=== PATIENT | male | born 1960 | race Caucasian/White ===

== ENCOUNTER 2017-01-13 16:04 | Emergency (ER) | payer BC, OTHER ==
[~2017-01-13] VITALS: Ht 182.9 cm; Wt 67.1 kg
[~2017-01-13 16:04] MED LIST: ALPR.25T; DICY20TA57 PO
[2017-01-13] MEDS ORDERED: DICL50TA6 PO (18:57)
[2017-01-13] MEDS ORDERED: AMOX875T2 PO (18:57)
--- NOTE | 2017-01-13 18:57 | ED EENT ---
History of Present Illness General Chief Complaint: Dental Problems/Pain Stated Complaint: R SIDE MOUTH ABSCESS Nursing Triage Note: Pt. advises he is experiencing right sided dental pain that has been present for several weeks. Source: patient, RN notes reviewed Exam Limitations: no limitations History of Present Illness Time seen by provider: 18:49 Initial Comments Patient presents c/ c/o right sided dental pain for the last couple weeks secondary to a cavity that has been present for quite some time Has been taking some Amoxil that his had left over but doesn't have enough to make thru the weekend until he can get into his dentist. Currently rating his pain a 7/10. Timing/Duration: other (2-3 weeks) Severity: moderate (710) Location: mouth Prearrival Treatment: prescription meds (Amoxil) Modifying Factors: Improves With Other (breathing, eating, and drinking makes pain worse) Associated Symptoms: tooth pain Allergies and Home Medications Allergies Coded Allergies: No Known Drug Allergies (Unverified , 01/13/17) Home Medications Alprazolam 0.25 Mg Tablet, (Reported) Amoxicillin 875 Mg Tablet, 875 MG PO BID, #20 Ref 0 Prescribed by: CORNELIO ZAVALA on 01/13/171856 Diclofenac Sodium 50 Mg Tablet.dr, 50 MG PO Q6H PRN for DENTAL PAIN/SWELLING, # 30 Ref 0 Prescribed by: CORNELIO ZAVALA on 01/13/171856 Dicyclomine Hcl 20 Mg Tablet, 1 EACH PO QID PRN, #20 Ref 0 Prescribed by: ROSY VÁSQUEZ on 01/25/11 1904 Review of Systems Constitutional: see HPI Mouth: see HPI, pain All Other Systems Reviewed Negative Unless Noted: Yes Past Azaabsb-Ziiucv-Ijxtsf Hx Patient Social History Alcohol Use: Denies Use Recreational Drug Use: No Smoking Status: Current Everyday Smoker Type Used: Cigars 2nd Hand Smoke Exposure: No Recent Foreign Travel: No Contact w/Someone Who Travel: No Recent Infectious Disease Expo: No Recent Hopitalizations: No Seasonal Allergies Seasonal Allergies: No Surgeries Surgeries: Orthopedic Cardiovascular Cardiac Disorders: Valvular Heart Disease Physical Exam Vital Signs Vital Sign - Last 12Hours 01/13/17 17:31 Temp 98.7 Pulse 72 Resp 14 B/P (MAP) 124/77 Pulse Ox 98 O2 Delivery Room Air General Appearance: WD/WN, no apparent distress Mouth/Throat: dental tenderness (involved tooth is probably 80% gone @ this point secondary to marked decay.) Neck: supple Cardiovascular: regular rate, rhythm Respiratory: no respiratory distress Neurologic/Psychiatric: no motor/sensory deficits, alert, oriented x 3 Skin: warm/dry Progress/Results/Core Measures Results/Orders Vital Signs/I&O Blood Pressure Mean: 93 Departure Impression Impression: Primary Impression: Dental caries Additional Impression: Pain, dental Disposition: 01 HOME, SELF-CARE Condition: Stable Departure-Patient Inst. Decision time for Depature: 18:55 Referrals: KUSH VÁSQUEZ MD (PCP/Family) Primary Care Physician Patient Instructions: Dental Pain (DC), Tooth Decay, Adult (DC) Add. Discharge Instructions: All discharge instructions reviewed with patient and/or family. Voiced understanding. NEED TO SEE YOUR DENTIST CAMERON FOR DEFINITIVE EVALUATION AND TREATMENT OF YOUR DENTAL CONDITION. Scripts Diclofenac Sodium (Diclofenac Sodium) 50 Mg Tablet.dr 50 MG PO Q6H Y for DENTAL PAIN/SWELLING, #30 TAB 0 Refills Prov: CORNELIO ZAVALA DO 01/13/17 Amoxicillin (Amoxicillin) 875 Mg Tablet 875 MG PO BID for DENTAL INFECTION, #20 TAB 0 Refills Prov: CORNELIO ZAVALA DO 01/13/17 CORNELIO ZAVALA DO Jan 13, 2017 18:57
[2017-01-13 18:59] VITALS: BP 124/77
== END 2017-01-13 19:03 | disposition home or self-care (01) ==
LOC: EDUNIT# 16:04 → ER 16:06
DX: K02.9 Dental caries, unspecified (principal); F17.210 Nicotine dependence, cigarettes, uncomplicated
CPT/HCPCS: 99282

== ENCOUNTER → 2017-02-14 | Outpatient (CLI) | payer BC ==
[~2017-02-14] MED LIST changes: +AMOX875T2 PO; +DICL50TA6 PO
--- NOTE | 2017-02-14 15:47 | Diagnostic Imaging Report ---
PROCEDURE: CT maxillofacial without contrast. TECHNIQUE: Multiple contiguous axial images were obtained through the facial bones without the use of intravenous contrast. INDICATION: Right facial pain. FINDINGS: There is susceptibility artifacts at the level of the teeth related to dental fillings. There is no soft tissue fluid collection or evidence of abscess seen. The orbits appear symmetric. The orbital velásquez are intact. There is significant nasoseptal deviation to the left. The paranasal sinuses are generally clear with no significant mucosal thickening or fluid levels. Also, the visualized portions of the mastoid air cells and middle ear cavities appear clear. There are multiple absent teeth and mild erosions suggested around the teeth roots particularly in the upper jaw. Correlate with dental evaluation. The parotid and submandibular glands appear unremarkable. IMPRESSION: Dental abnormalities mostly involving the upper teeth. No soft tissue abscess, fluid collection or significant osseous abnormality in the face. Dictated by: Dictated on workstation # [id number]
== END ==
LOC: RAD 14:03
PROVIDERS: ATTEND Internal Medicine
DX: K08.9 Disorder of teeth and supporting structures, unspecified (principal)
CPT/HCPCS: 70486

== ENCOUNTER 2020-03-23 14:55 | Emergency (ER) | payer BC ==
[~2020-03-23] VITALS: Ht 182 cm; Wt 75.0 kg
[2020-03-23] MEDS ORDERED: FAMOTIDINE 20MG/2ML IV (PEPCID) IV STA (15:14)
[2020-03-23 15:26] LABS: BASOPHILS % (AUTO) 0 % (0-10); EOSINOPHILS # (AUTO) 0.1 10^3/uL (0.0-0.3); EOSINOPHILS % (AUTO) 1 % (0-10); HEMATOCRIT 43 % (40-54); HEMOGLOBIN 14.8 G/DL (13.3-17.7); LYMPHOCYTES # (AUTO) 1.7 X 10^3 (1.0-4.0); LYMPHOCYTES % (AUTO) 23 % (12-44); MEAN CORPUSCULAR HEMOGLOBIN 34 PG (25-34); MEAN CORPUSCULAR HGB CONC 35 G/DL (32-36); MEAN CORPUSCULAR VOLUME 98 FL (80-99); MEAN PLATELET VOLUME 9.4 FL (7.4-10.4); MONOCYTES # (AUTO) 0.7 X 10^3 (0.0-1.0); MONOCYTES % (AUTO) 10 % (0-12); NEUTROPHILS # (AUTO) 4.8 X 10^3 (1.8-7.8); NEUTROPHILS % (AUTO) 66 % (42-75); PLATELET COUNT 312 10^3/uL (130-400); RED CELL DISTRIBUTION WIDTH 13.7 % (10.0-14.5); WHITE BLOOD COUNT 7.3 10^3/uL (4.3-11.0)
[2020-03-23 15:37] LABS: PROTHROMBIN TIME PATIENT 13.3 SEC (12.2-14.7)
[2020-03-23 15:44] LABS: ALANINE AMINOTRANSFERASE 23 U/L (0-55); ALBUMIN 4.6 GM/DL (3.2-4.5); ALKALINE PHOSPHATASE 81 U/L (40-136); BILIRUBIN,TOTAL 0.7 MG/DL (0.1-1.0); BUN/CREATININE RATIO 12; CALCIUM 9.5 MG/DL (8.5-10.1); CARBON DIOXIDE 26 MMOL/L (21-32); CHLORIDE 105 MMOL/L (98-107); CREATININE SERUM 1.05 MG/DL (0.60-1.30); GFR ESTIMATED > 60; GLUCOSE 89 MG/DL (70-105); MAGNESIUM 2.3 MG/DL (1.6-2.4); POTASSIUM 3.9 MMOL/L (3.6-5.0); SODIUM 142 MMOL/L (135-145); TOTAL PROTEIN 7.8 GM/DL (6.4-8.2)
--- NOTE | 2020-03-23 15:47 | Diagnostic Imaging Report ---
EXAMINATION: Portable erect AP chest at 03:37 p.m. INDICATION: Chest pain. FINDINGS: The heart size is within normal limits and stable when compared to 01/25/2011. The lungs are clear. There is no evidence for failure, pneumonia or for pleural effusion. The mediastinum is not widened. The osseous structures are intact. IMPRESSION: There is no evidence for active disease. When compared to the prior study, there has been no significant change. Dictated by: Dictated on workstation # [id number]
--- NOTE | 2020-03-23 16:06 | ED Chest Pain ---
General Chief Complaint: Chest Pain Stated Complaint: CHEST PAIN Nursing Triage Note: PT STATES STERNUM AND LT UPPER CHEST PAIN, BURNNING FOR ABOUT 5 DAYS. Nursing Sepsis Screen: No Definite Risk History of Present Illness Date Seen by Provider: Mar 23, 2020 Time Seen by Provider: 16:03 Initial Comments 59-old male presents with epigastric and left upper abdomen pain. He reports he describes as a burning in his been there for 5 days. Worse when he lays down. He does report a history of what sounds like esophageal stricture or spasms. With taking Ativan and having a scope a long time ago. Patient denies any nausea, vomiting, shortness of breath, radiation of the pain. Nothing seems to make it better. He does not have any fevers or chills. Allergies and Home Medications Allergies Coded Allergies: No Known Drug Allergies (Unverified , 01/13/17) Home Medications Amoxicillin 875 Mg Tablet, 875 MG PO BID Prescribed by: CORNELIO ZAVALA on 01/13/171856 Diclofenac Sodium 50 Mg Tablet.dr, 50 MG PO Q6H PRN for DENTAL PAIN/SWELLING Prescribed by: CORNELIO ZAVALA on 01/13/171856 Dicyclomine Hcl 20 Mg Tablet, 1 EACH PO QID PRN Prescribed by: ROSY VÁSQUEZ on 01/25/11 190 Patient Home Medication List Home Medication List Reviewed: Yes Review of Systems Review of Systems Constitutional: No chills, No fever Respiratory: Denies Cough, Denies Shortness of Air Cardiovascular: Denies Chest Pain Gastrointestinal: Abdominal Pain (epigastric); Denies Constipated, Denies Diarrhea, Denies Nausea, Denies Vomiting Musculoskeletal: no symptoms reported Skin: no symptoms reported Psychiatric/Neurological: No Symptoms Reported Endocrine: No Symptoms Reported Past Camxsed-Iyrfyr-Eumibj Hx Past Med/Social Hx: Reviewed Nursing Past Med/Soc Hx Patient Social History Alcohol Use: Occasionally Uses Alcohol Beverage of Choice: Beer Recreational Drug Use: No Smoking Status: Former Smoker Type Used: Cigars Former Smoker, Quit: Mar 13, 2017 2nd Hand Smoke Exposure: No Recent Foreign Travel: No Contact w/Someone Who Travel: No Recent Infectious Disease Expo: No Recent Hopitalizations: No Physical Abuse: No Sexual Abuse: No Mistreated: No Fear: No Seasonal Allergies Seasonal Allergies: No Past Medical History Surgeries: Yes (dental-jaw) Orthopedic Respiratory: No Cardiac: Yes Valvular Heart Disease Neurological: No Genitourinary: Yes Kidney Stones Gastrointestinal: No Musculoskeletal: Yes Chronic Back Pain Endocrine: No HEENT: No Cancer: No Psychosocial: No Blood Disorders: No Physical Exam Vital Signs Vital Signs - First Documented 03/23/20 15:06 Temp 36.4 Pulse 74 Resp 18 B/P (MAP) 145/91 (109) Pulse Ox 99 O2 Delivery Room Air Capillary Refill : Less Than 3 Seconds Height, Weight, BMI Height: 6'0" Weight: 148lbs. oz. 67.321591zj; 22.00 BMI Method:Stated General Appearance: No Apparent Distress, WD/WN Neck: Non Tender, Supple Respiratory: Chest Non Tender, Lungs Clear, Normal Breath Sounds Cardiovascular: Regular Rate, Rhythm Gastrointestinal: Soft, Tenderness (epigastric) Extremity: Normal Capillary Refill, Normal Range of Motion Neurologic/Psychiatric: Alert, Normal Mood/Affect, office bookkeeper II-XII Norm as Tested Skin: Normal Color, Warm/Dry Progress/Results/Core Measures Results/Orders Lab Results Laboratory Tests Test 03/23/20 15:16 Range/Units White Blood Count 7.3 4.3-11.0 10^3/uL Red Blood Count 4.37 4.35-5.85 10^6/uL Hemoglobin 14.8 13.3-17.7 G/DL Hematocrit 43 40-54 % Mean Corpuscular Volume 98 80-99 FL Mean Corpuscular Hemoglobin 34 25-34 PG Mean Corpuscular Hemoglobin Concent 35 32-36 G/DL Red Cell Distribution Width 13.7 10.0-14.5 % Platelet Count 312 130-400 10^3/uL Mean Platelet Volume 9.4 7.4-10.4 FL Neutrophils (%) (Auto) 66 42-75 % Lymphocytes (%) (Auto) 23 12-44 % Monocytes (%) (Auto) 10 0-12 % Eosinophils (%) (Auto) 1 0-10 % Basophils (%) (Auto) 0 0-10 % Neutrophils # (Auto) 4.8 1.8-7.8 X 10^3 Lymphocytes # (Auto) 1.7 1.0-4.0 X 10^3 Monocytes # (Auto) 0.7 0.0-1.0 X 10^3 Eosinophils # (Auto) 0.1 0.0-0.3 10^3/uL Basophils # (Auto) 0.0 0.0-0.1 10^3/uL Prothrombin Time 13.3 12.2-14.7 SEC INR Comment 1.0 0.8-1.4 Activated Partial Thromboplast Time 33 24-35 SEC D-Dimer 0.16 0.00-0.49 UG/ML Sodium Level 142 135-145 MMOL/L Potassium Level 3.9 3.6-5.0 MMOL/L Chloride Level 105 98-107 MMOL/L Carbon Dioxide Level 26 21-32 MMOL/L Anion Gap 11 5-14 MMOL/L Blood Urea Nitrogen 13 7-18 MG/DL Creatinine 1.05 0.60-1.30 MG/DL Estimat Glomerular Filtration Rate > 60 BUN/Creatinine Ratio 12 Glucose Level 89 70-105 MG/DL Calcium Level 9.5 8.5-10.1 MG/DL Corrected Calcium 8.5-10.1 MG/DL Magnesium Level 2.3 1.6-2.4 MG/DL Total Bilirubin 0.7 0.1-1.0 MG/DL Aspartate Amino Transf (AST/SGOT) 21 5-34 U/L Alanine Aminotransferase (ALT/SGPT) 23 0-55 U/L Alkaline Phosphatase 81 40-136 U/L Myoglobin 36.8 10.0-92.0 NG/ML Troponin I < 0.028 <0.028 NG/ML B-Type Natriuretic Peptide < 10.0 <100.0 PG/ML Total Protein 7.8 6.4-8.2 GM/DL Albumin 4.6 H 3.2-4.5 GM/DL My Orders Orders - WENDI DON DO Famotidine Injection (Pepcid Injection) (03/23/20 15:14) Vital Signs/I&O 03/23/20 03/23/20 15:06 15:24 Temp 36.4 Pulse 74 Resp 18 B/P (MAP) 145/91 (109) Pulse Ox 99 O2 Delivery Room Air Room Air Blood Pressure Mean: 109 Progress Progress Note : Time: 16:14 Progress Note Patient with negative EKG and troponin. Patient's pain has been there for a week. Pain is much more consistent with a gastritis or other etiology involving the stomach and esophagus. I discussed with patient the need to start omeprazole or similar PPI along with Zantac. Recommend he follow-up with his primary care provider to help him arrange either a GI or Gen. surgery follow-up for a repeat EGD since his been years since he had one. Patient is stable and will be discharged home Initial ECG Impression Date: Mar 23, 2020 Initial ECG Impression Time: 15:11 Initial ECG Rhythm: Normal Sinus Initial ECG Intervals: Normal Initial ECG Impression: Normal Comment NSR no acute findings Departure Impression Primary Impression: Gastritis Qualified Codes: K29.70 - Gastritis, unspecified, without bleeding Additional Impression: Gastroesophageal reflux disease Qualified Codes: K21.9 - Gastro-esophageal reflux disease without esophagitis Disposition: HOME, SELF-CARE Condition: Stable Departure-Patient Inst. Referrals: KUSH VÁSQUEZ MD (PCP/Family) Primary Care Physician Patient Instructions: Gastritis, Acid Reflux (Gastroesophageal Reflux Disease), Adult (DC) Add. Discharge Instructions: Please start omeprazole, pantoprazole or similar proton pump inhibitor daily Please start famotidine twice daily 2 weeks Follow-up with your primary care provider to arrange an outpatient appointment with either a GI specialist her general surgeon for further evaluation and possible EGD All discharge instructions reviewed with patient and/or family. Voiced understanding. WENDI DON DO Mar 23, 2020 16:05
[2020-03-23 16:42] VITALS: BP 106/75
--- OUTSIDE RECORDS SUMMARY | 2020-03-23 16:51 | XMS REPORT ---
Author Author [employer] [facility] [employer] [facility] Address [address] [address] Care Team Providers Care Horn Player Name Role Phone KUSH VÁSQUEZ Unavailable KUSH VÁSQUEZ MD Unavailable Unavailable CORNELIO ZAVALA DO Unavailable Unavailable KATRIN COLLINS MD Unavailable Unavailable JANELL PERRIN Unavailable Unavailable Unavailable Unavailable Allergies Allergy Reported Allergen(s) Allergy Type Date of Reaction(s) Care Facility Classificati Onset Provider on Unclassified No Known Drug Allergies DA 01-25-2011 JANELL PERRIN Not (5 sources) Available ([id number]) Encounters Encounter Date Encounter Type Encounter Diagnosis Care Provider Facility Start: Patient encounter KUSH VÁSQUEZ MD Not [facility] ([id number]) 02-14-2017 procedure Start: Patient encounter JANELL PERRIN Not [facility] ([id number]) 09-29-2015 procedure Medical Equipment No Information Goals No Information Immunizations No Information Interventions No Information Medications No Information Payers No Information Plan of Treatment The data below is from unstructured sources Discharge Date 01/13/17 7:03pm Disposition 01 HOME, SELF-CARE Condition at Discharge Stable Instructions/Education Provided Toot h Decay, Adult (DC) Dental Pain (DC) Prescriptions See Medication Section Referrals KUSH VÁSQUEZ MD Order Date: Primary Care Physician Address: [address] [place] [id number] Additional Instructions/Education Al l discharge instructions reviewed with patient and/or family. Voiced understanding. NEED TO SEE YOUR DENTIST CAMERON FOR DEFINITIVE EVALUATION AND TREATMENT OF YOUR DENTAL CONDITION. Problems Active Problems Problem Problem Date Last Documented Episodic/Chr Provider Classificati Recorded Date onic on Substance-re Nicotine dependence, cigarettes, Chronic CORNELIO kunz uncomplicated SALLY CHATTERJEE disorders (1 source) Past or Other Problems Problem Problem Date Last Documented Episodic/Chr Provider Classificati Recorded Date onic on Other Unspecified rotator cuff tear or Episodic JANELL PERRIN connective rupture of left shoulder, n ot tissue specified as traumatic disease (1 source) Procedures The data below is from unstructured sourcesNo procedure information available. Results No Information Social History No Information Vital Signs The data below is from unstructured sources Vital Response Date/Time Temperature (Fahrenheit) 98.7 degree s F (97.6 - 99.5) 01/13/2017 5:31pm Temperature (Calculated Celsius) 37. 44018 degrees C (36.4 - 37.5) 01/13/2017 5:31pm Temperature Source Temporal 01/13/2017 5:31pm Pulse Rate (adult) 78 bpm (60 - 90) 01/13/2017 6:59pm Respiratory Rate 14 bpm (12 - 24) 01/13/2017 6:59pm O2 Sat by Pulse Oximetry 98 % (88 - 100) 01/13/2017 6:59pm Blood Pressure 124/77 mm Hg 01/13/2017 6:59pm Blood Pressure Mean 93 mm Hg 01/13/2017 5:31pm Pain Numeric Pain Scale 5-Moderate Pain 01/13/2017 6:59pm Height (Feet) 6 feet 10/2016 5:31pm Height (Inches) 0 inches 01/13/2017 5:31pm Height (Calculated Centimeters) 182. 507257 cm 01/13/2017 5:31pm Weight (Pounds) 148 pounds 01/13/2017 5:31pm Weight (Calculated Kilograms) 67.131 671 kilograms 01/13/2017 5:31pm Capillary Refill Capillary Refill Less Than 3 Seconds 01/13/2017 5:31pm Height 6 ft 0 in 017 5:31pm Weight 148 lb 01/13/2017 5:31pm Body Mass Index 20.1 kg/m^2 01/13/2017 5:31pm Functional Status The data below is from unstructured sourcesNo functional status information available. Mental Status No Information Advance Directives Directive Response Recor ded Date/Time Advance Directives No 5:31pm Resuscitation Status Full Code 01/13/17 5:31pm Discharge Instructions No hospital discharge instruction information available. Additional Source Comments This clinical document has been generated using [employer] software that has been certified by the Office of the National Coordinator for Health Information Technology (ONC 15.99.04.3023.Diam.31.00.0.773715) and the National Committee for Automobile Upholsterer Apprentice (NCQA, as an eMeasure certified technology). FOR RECORDS PERTAINING TO PATIENTS WHO ARE OR HAVE BEEN ENROLLED IN A CHEMICAL D EPENDENCY/SUBSTANCE ABUSE PROGRAM, SOME INFORMATION MAY BE OMITTED. This clinica l summary was aggregated from multiple sources. Caution should be exercised in using it in the provision of clinical care. This summary normalizes information from multiple sources, and as a consequence, information in this document may ma terially change the coding, format and clinical context of patient data. In alona tion, data may be omitted in some cases. CLINICAL DECISIONS SHOULD BE BASED ON T HE PRIMARY CLINICAL RECORDS. [facility] [employer] [facility]. provides no warranty or guara ntee of the accuracy or completeness of information in this document.The followi information is based on time limited clinical information
--- OUTSIDE RECORDS SUMMARY | 2020-03-23 16:51 | XMS REPORT | Continuity of Care Document ---
Author Organization Unknown Address Unknown Phone Unavailable Allergies Active Description Code Type Severity Reaction Onset Reported/Identified Relationship to Patient Clinical Status Yes No Known Drug Allergies [id number] Drug Allergy Unknown N/A 01/13/2017 Medications There is no data. Problems Date Dx Coded Attending Type Code Diagnosis Diagnosed By 05/06/2010 Ot 719.47 05/06/2010 Ot V54.89 05/06/2010 Ot V57.1 01/25/2011 Ot 564.1 01/25/2011 Ot 789.02 05/17/2011 Ot 787.91 04/29/2015 Ot 787.91 09/30/2015 JANELL PERRIN DRUG SAFETY DATA MANAGEMENT SPECIALIST Ot M75.102 10/05/2015 JANELL PERRIN DRUG SAFETY DATA MANAGEMENT SPECIALIST Ot M75.102 11/10/2015 JANELL PERRIN DRUG SAFETY DATA MANAGEMENT SPECIALIST Ot M75.102 11/07/2016 JANELL PERRIN DRUG SAFETY DATA MANAGEMENT SPECIALIST Ot M75.102 UNSP ROTATR-CUFF TEAR/RUPTR OF LEFT SHOU 01/13/2017 CORNELIO ZAVALA DO Ot F17.210 NICOTINE DEPENDENCE, CIGARETTES, UNCOMPL 01/13/2017 CORNELIO ZAVALA DO Ot K02.9 DENTAL CARIES, UNSPECIFIED 01/13/2017 CORNELIO ZAVALA DO Ot K08.9 DISORDER OF TEETH AND SUPPORTING STRUCTU 03/05/2017 KUSH VÁSQUEZ MD Ot K08.9 DISORDER OF TEETH AND SUPPORTING STRUCTU Procedures There is no data. Results Test Result Range Complete blood count (CBC) with automate d white blood cell (WBC) differential - 03/23/20 15:16 Blood leukocytes automated count (number/volume) 7.3 10*3/uL 4.3-11.0 Blood erythrocytes automated count (number/volume) 4.37 10*6/uL 4.35-5.85 Venous blood hemoglobin measurement (mass/volume) 14.8 g/dL 13.3-17.7 Blood hematocrit (volume fraction) 43 % 40-54 Automated erythrocyte mean corpuscular volume 98 [ foz_us] 80-99 Automated erythrocyte mean corpuscular h emoglobin (mass per erythrocyte) 34 pg 25-34 Automated erythrocyte mean corpuscular h emoglobin concentration measurement (mass/volume) 35 g/dL 32-36 Automated erythrocyte distribution width ratio 13. 7 % 10.0- 14.5 Automated blood platelet count (count/volume) 312 10*3/uL 130-400 Automated blood platelet mean volume measurement 9.4 [foz_us] 7.4-10.4 Automated blood neutrophils/100 leukocytes 66 % 42-75 Automated blood lymphocytes/100 leukocytes 23 % 12-44 Blood monocytes/100 leukocytes 10 % 0-12 Automated blood eosinophils/100 leukocytes 1 % 0-10 Automated blood basophils/100 leukocytes 0 % 0-10 Blood neutrophils automated count (number/volume) 4.8 10*3 1.8-7.8 Blood lymphocytes automated count (number/volume) 1.7 10*3 1.0-4.0 Blood monocytes automated count (number/volume) 0. 7 10*3 0.0-1.0 Automated eosinophil count 0.1 10*3/uL 0 .0-0.3 Automated blood basophil count (count/volume) 0.0 10*3/uL 0.0-0.1 PT panel in platelet poor plasma by coag ulation assay - 03/23/20 15:16 Prothrombin time (PT) in platelet poor plasma by coagu lation assay 13.3 s 12.2-14.7 INR in platelet poor plasma or blood by coagulation as say 1.0 0.8-1.4 Activated partial thromboplastin time (a PTT) in platelet poor plasma bycoagulation assay - 03/23/20 15:16 Activated partial thromboplastin time (a PTT) in platelet poor plasma bycoagulation assay 33 s 24-35 Comprehensive metabolic panel - 03/23/20 15:16 Serum or plasma sodium measurement (moles/volume) 142 mmol/L 135-145 Serum or plasma potassium measurement (moles/volume) 3.9 mmol/L 3.6-5.0 Serum or plasma chloride measurement (moles/volume) 105 mmol/L 98-107 Carbon dioxide 26 mmol/L 21-32 Serum or plasma anion gap determination (moles/volume) 11 mmol/L 5-14 Serum or plasma urea nitrogen measurement (mass/volume ) 13 mg/dL 7-18 Serum or plasma creatinine measurement (mass/volume) 1.05 mg/dL 0.60-1.30 Serum or plasma urea nitrogen/creatinine mass ratio 12 NRG Serum or plasma creatinine measurement w ith calculation of estimated glomerular filtration rate > NRG Serum or plasma glucose measurement (mass/volume) 89 mg/dL 70-105 Serum or plasma calcium measurement (mass/volume) 9.5 mg/dL 8.5-10.1 Serum or plasma total bilirubin measurement (mass/volu me) 0.7 mg/dL 0.1-1.0 Serum or plasma alkaline phosphatase anthony surement (enzymatic activity/volume) 81 U/L 40-136 Serum or plasma aspartate aminotransfera se measurement (enzymatic activity/volume) 21 U/L 5-34 Serum or plasma alanine aminotransferase measurement (enzymatic activity/volume) 23 U/L 0-55 Serum or plasma protein measurement (mass/volume) 7.8 g/dL 6.4-8.2 Serum or plasma albumin measurement (mass/volume) 4.6 g/dL 3.2-4.5 Magnesium - 03/23/20 15:16 Magnesium 2.3 mg/dL 1.6-2.4 Fibrin D-dimer FEU measurement in platel et poor plasma (mass/volume) - 03/23/20 15:16 Fibrin D-dimer FEU measurement in platelet poor plasma (mass/volume) 0.16 ug/mL 0.00-0.49 Myoglobin, serum - 03/23/20 15:16 Myoglobin, serum 36.8 ng/mL 10.0-92.0 Serum or plasma troponin i.cardiac measu rement (mass/volume) - 03/23/20 15:16 Serum or plasma troponin i.cardiac measurement (mass/v olume) < ng/mL <0.028 Serum or plasma lithium measurement (mol es/volume) - 03/23/20 15:16 BNP PT < 10.0 <100.0 Encounters ACCT No. Visit Date/Time Discharge Status Pt. Type Provider Facility Loc./Unit Complaint [id number] 02/14/2017 14:03:00 017 23:59:59 CLS Outpatient THALIA GOLDBERG, KUSH Sanchez [facility] RAD RT FACIAL PAIN [id number] 01/13/2017 16:06:00 017 19:03:00 DIS Emergency CORNELIO ZAVALA DO [facility] ER R SIDE MOUTH ABSCESS [id number] 09/29/2015 14:30:00 016 23:59:59 CLS Outpatient JANELL PERRIN [facility] RAD LEFT ROTATOR CUFF TEAR [id number] 03/23/2020 15:27:00 Document Registration [id number] 04/29/2015 08:55:00 Document Registration [id number] 04/29/2015 08:55:00 Document Registration [id number] 04/29/2015 08:55:00 Document Registration [id number] 05/18/2011 00:00:00 Document Registration
== END 2020-03-23 16:42 | disposition home or self-care (01) ==
LOC: EDUNIT# 14:55 → ER 14:56
DX: K29.70 Gastritis, unspecified, without bleeding (principal); K21.9 Gastro-esophageal reflux disease without esophagitis; G89.29 Other chronic pain; M54.9 Dorsalgia, unspecified; Z79.1 Long term (current) use of non-steroidal anti-inflammatories (NSAID); Z87.891 Personal history of nicotine dependence
CPT/HCPCS: 36415; 71045; 80053; 83735; 83874; 83880; 84484; 85025; 85379; 85610; 85730; 93005; 93041

== ENCOUNTER → 2020-09-23 | Outpatient (CLI) | payer BC ==
--- NOTE | 2020-09-23 15:46 | Diagnostic Imaging Report ---
PROCEDURE: CT sinuses without contrast TECHNIQUE: Multiple contiguous axial images were obtained through the sinuses without the use of intravenous contrast. Coronal and sagittal reformations were then performed. Auto Exposure Controls were utilized during the CT exam to meet ALARA standards for radiation dose reduction. INDICATION: Left-sided facial pain. Blood after sneezing. COMPARISON: 02/14/2017. FINDINGS: There are large leftward directed nasal septal spurs associated with some leftward generalized deviations, stable. Frontal sinuses are clear. The ethmoid air cells are clear. The maxillary sinuses are clear. The sphenoid sinuses are clear. Mastoid air cells and middle ear cavities are clear and well aerated. No bony destruction or ostial obstruction. No membrane thickening or air-fluid levels. IMPRESSION: Extensive leftward nasal septal spurring and deviation, chronic. Clear paranasal sinuses. Dictated by: Dictated on workstation # [id number]
== END ==
LOC: RAD 11:15
PROVIDERS: ATTEND Otolaryngology Otolaryngology/Facial Plastic Surgery
DX: J34.89 Other specified disorders of nose and nasal sinuses (principal); J34.2 Deviated nasal septum
CPT/HCPCS: 70486

== ENCOUNTER → 2021-10-17 | Outpatient (CLI) | payer BC ==
--- NOTE | 2021-10-17 11:18 | Diagnostic Imaging Report ---
INDICATION: Constipation x 1 week. TIME OF EXAM: 10:23 AM. FINDINGS: No free air is identified. The bowel gas pattern is nonobstructed. No significant stool load is identified. No pathologic calcifications are seen. IMPRESSION: No acute feature is detected. Dictated by: Dictated on workstation # [id number]
== END ==
LOC: RAD 09:35
PROVIDERS: ATTEND Nurse Practitioner Family
DX: K59.00 Constipation, unspecified (principal)
CPT/HCPCS: 74019

== ENCOUNTER → 2021-10-24 | Outpatient (CLI) | payer BC ==
[~2021-10-24] MED LIST changes: +CATHETER FLUSH 10 ML SYR IV PRN; +HOLD METFORMIN - RECEIVED CONTRAST 20 ML VIAL IV SCH; +IOHEXOL 350 MG/ML 100 ML (OMNIPAQUE 350) VIAL IV ONE; +NS 100 ML (IVPB) BAG IV ONE
[2021-10-24 12:39] LABS: HEMATOCRIT 47 % (40-54); HEMOGLOBIN 15.4 g/dL (13.3-17.7); MEAN CORPUSCULAR HEMOGLOBIN 33 pg (25-34); MEAN CORPUSCULAR HGB CONC 33 g/dL (32-36); MEAN CORPUSCULAR VOLUME 100 fL (80-99); MEAN PLATELET VOLUME 9.8 fL (9.0-12.2); PLATELET COUNT 282 10^3/uL (130-400); WHITE BLOOD COUNT 5.1 10^3/uL (4.3-11.0)
[2021-10-24 12:50] LABS: ALANINE AMINOTRANSFERASE 19 U/L (0-55); ALBUMIN 4.6 GM/DL (3.2-4.5); ALKALINE PHOSPHATASE 74 U/L (40-136); BILIRUBIN,TOTAL 0.6 MG/DL (0.1-1.0); BUN/CREATININE RATIO 10; CALCIUM 9.7 MG/DL (8.5-10.1); CARBON DIOXIDE 28 MMOL/L (21-32); CHLORIDE 105 MMOL/L (98-107); CREATININE SERUM 1.08 MG/DL (0.60-1.30); GFR ESTIMATED 78; GLUCOSE 97 MG/DL (70-105); POTASSIUM 4.6 MMOL/L (3.6-5.0); SODIUM 141 MMOL/L (135-145); TOTAL PROTEIN 7.6 GM/DL (6.4-8.2)
--- NOTE | 2021-10-24 13:42 | Diagnostic Imaging Report ---
PROCEDURE: CT abdomen and pelvis with contrast. TECHNIQUE: Multiple contiguous axial images were obtained through the abdomen and pelvis after administration of intravenous contrast. Auto Exposure Controls were utilized during the CT exam to meet ALARA standards for radiation dose reduction. All CT scans use one or more of the following dose optimizing techniques: automated exposure control, MA and/or KvP adjustment based on patient size and exam type or iterative reconstruction. INDICATION: Left lower quadrant pain, diarrhea, and constipation. COMPARISON: CT chest, abdomen, and pelvis dated 01/25/2011. FINDINGS: The air-containing appendix is visualized and normal. There is no diverticulitis. No perienteric or pericolonic edema. No focal inflammatory process. No ascites, abscess, hematoma, or acute fluid collection. The liver, gallbladder, bile ducts, spleen, adrenals, and pancreas are all nonacute. The unobstructed kidneys appear unremarkable. No aneurysm, adenopathy, or mass. IMPRESSION: Normal appendix. Unobstructed nonacute urinary tracts. No inflammatory process or acute appearing abnormality is identified. No bowel wall thickening or abnormal bowel content. Dictated by: Dictated on workstation # [id number]
== END ==
LOC: RAD 11:55
PROVIDERS: ATTEND Internal Medicine
DX: R10.32 Left lower quadrant pain (principal)
CPT/HCPCS: 36415; 74177; 80053; 85027

== ENCOUNTER 2021-11-01 10:27 | Outpatient (CLI) | payer BC ==
[~2021-11-01] VITALS: Ht 182.9 cm; Wt 79.4 kg
[~2021-11-01 10:27] MED LIST changes: -CATHETER FLUSH 10 ML SYR IV PRN; -HOLD METFORMIN - RECEIVED CONTRAST 20 ML VIAL IV SCH; -IOHEXOL 350 MG/ML 100 ML (OMNIPAQUE 350) VIAL IV ONE; -NS 100 ML (IVPB) BAG IV ONE
[2021-11-01] MEDS ORDERED: ALPR0.254 PO (15:34)
== END 2021-11-01 17:04 | disposition home or self-care (01) ==
LOC: PREOP 10:27
PROVIDERS: ATTEND Surgery
DX: Z01.818 Encounter for other preprocedural examination (principal)

== ENCOUNTER 2021-11-04 10:47 | Day surgery (SDC) | payer BC ==
[~2021-11-04] VITALS: Ht 182.9 cm; Wt 79.4 kg
[~2021-11-04 10:47] MED LIST changes: +ALPR0.254 PO
--- NOTE | 2021-11-04 10:49 | Progress Note-Pre Operative ---
Pre-Operative Progress Note H&P Reviewed The H&P was reviewed, patient examined and no changes noted. Date Seen by Provider: Nov 04, 2021 Time Seen by Provider: 10:30 Date H&P Reviewed: Nov 04, 2021 Time H&P Reviewed: 10:30 Pre-Operative Diagnosis: screening SEBASTIAN Ochoa MD Nov 04, 2021 10:49
--- NOTE | 2021-11-04 10:50 | Discharge Inst-Surgical ---
D/C Lap Instructions-MANDY Follow Up Activity as tolerated High Fiber Diet 25g or more per day Avoid Alcohol, Caffeine, Spicy Sisters and Acid foods. Drink 64 fluid oz or more of fluids per day. Symptoms to Report: Fever over 101 degree F, Nausea/Vomiting If any problems/questions: Contact your physician or go to Emergency Room SEBASTIAN GALVAN MD Nov 04, 2021 10:50
[2021-11-04] MEDS ORDERED: LACTATED RINGERS 1,000 ML IV ONE (10:53)
[2021-11-04] MEDS ORDERED: LACTATED RINGERS 1,000 ML IV STA (10:57)
[2021-11-04 11:00] VITALS: BP 126/84
[2021-11-04] MEDS ORDERED: ONDANSETRON 4 MG/2 ML (SDV) Z0FRAN IVP PRN (11:00)
[2021-11-04] MEDS ORDERED: ONDANSETRON 4 MG (ZOFRAN) ORAL DISSOLVE TAB PO PRN (11:00)
[2021-11-04] MEDS ORDERED: LIDOCAINE JELLY 2% 6 ML SYRINGE MM PRN (11:00)
[2021-11-04] MEDS ORDERED: PROPOFOL INJECTION 50 ML IV ONE (11:55)
[2021-11-04] MEDS ORDERED: MIDAZOLAM 2 MG/2 ML (VERSED) VIAL ONE (11:55)
[2021-11-04 12:30] VITALS: BP 89/54
[2021-11-04 12:35] VITALS: BP 104/57
--- NOTE | 2021-11-04 12:40 | Progress Note-Post Operative ---
Post-Operative Progess Note Surgeon (s)/Director Of Consulting Services (s) Surgeon SEBASTIAN GALVAN MD Director Of Consulting Services: none Pre-Operative Diagnosis screening colo Post-Operative Diagnosis mild chronic stage 2 ext and int hemorrhoids. Procedure & Operative Findings Date of Procedure 11/04/21 Procedure Performed/Findings colonoscopy Anesthesia Type mac Estimated Blood Loss Estimated blood loss (mL): minimal Specimens/Packing Specimens Removed none SEBASTIAN GALVAN MD Nov 04, 2021 12:40
[2021-11-04 13:00] VITALS: BP 112/75
--- NOTE | 2021-11-04 13:43 | Anesthesia-General Post-Op ---
MAC Patient Condition Mental Status/LOC: Same as Preop Cardiovascular: Satisfactory Nausea/Vomiting: Absent Respiratory: Satisfactory Pain: Controlled Complications: Absent Post Op Complications Complications None Follow Up Care/Instructions Patient Instructions None needed. Anesthesiology Discharge Order Discharge Order Patient is doing well, no complaints, stable vital signs, no apparent adverse anesthesia problems. No complications reported per nursing. TULIO BENNETT CRNA Nov 04, 2021 13:43
--- NOTE | 2021-11-04 19:18 | OPERATIVE REPORT ---
DATE OF SERVICE: 11/04/2021 ATTENDING PRIMARY CARE PHYSICIAN: Dr. Pop Bazan. PREOPERATIVE DIAGNOSIS: Screening colonoscopy. POSTOPERATIVE DIAGNOSIS: Mild chronic stage II external and internal hemorrhoids. PROCEDURE: Colonoscopy. SURGEON: Sebastian Galvan MD. ANESTHESIA: Monitored anesthesia care. ESTIMATED BLOOD LOSS: Minimal. FINDINGS: Same as postoperative diagnosis. DISPOSITION: The patient tolerated the procedure well. INDICATIONS: The patient is a 60-year-old male in need of a screening colonoscopy. He has not had a colonoscopy up to this point in his life. He states that he is otherwise doing well, does not report any major issues with diarrhea nor constipation as well as no red blood per rectum nor any dark tarry stools. He also does not report any family history of colon cancer. DESCRIPTION OF PROCEDURE: The patient was brought to the endoscopy suite, laid in the left lateral decubitus position. After adequate IV pain and sedative medications and monitored anesthesia care, a digital rectal examination was performed. Mild stage II chronic external and internal hemorrhoids were identified, which were not actively edematous nor inflamed and no bleeding. Normal sphincter tone was felt and there were no palpable masses. Prostate gland was palpable and appeared normal. The endoscope was then intubated to the anus and rectum gently insufflated. The endoscope was then advanced to the valves of Morales of the rectum with no polyps or any neoplasms identified. Through the sigmoid colon, no diverticulosis identified. The endoscope was then advanced to the remainder of the descending, transverse and ascending colon to the cecum, which were normal. No polyps or any neoplasms identified throughout the colon or rectum. The endoscope was then slowly withdrawn while taking a second look and suctioning of residual air with no additional findings. The patient tolerated the procedure well. We will recommend a high-fiber diet with a fiber supplement, which should equal or exceed 30 grams daily as well as significant amounts of water to promote soft stools on a daily basis. If he is asymptomatic, he does not need another colonoscopy for another 10 years. Job ID: [id number] DocumentID: [id number] Dictated Date: 11/04/2021 12:30:38 Type Disk Quality Control Supervisor Date: 11/04/2021 19:18:16 Dictated By: SEBASTIAN GALVAN MD
== END 2021-11-04 13:03 | disposition home or self-care (01) ==
LOC: ENDO 10:47
PROVIDERS: ATTEND Surgery
DX: Z12.11 Encounter for screening for malignant neoplasm of colon (principal); K64.1 Second degree hemorrhoids; Z87.891 Personal history of nicotine dependence